=== PATIENT | female | born 1985 | race Caucasian/White ===

== ENCOUNTER 2024-07-25 17:38 | Emergency (ER) | payer BC, SELFPAY ==
[2024-07-25 17:41] VITALS: BP 141/72
--- NOTE | 2024-07-25 18:23 | ED.GENMED ---
History of Present Illness
<Tiffany Betancourt PA-C - Last Filed: 07/25/24 21:31>
General
Chief Complaint: Abdominal Pain
Source: patient
Exam Limitations: none
Time Seen by Provider: 07/25/24 17:50
Nursing documentation reviewed up to this point in time: agreed with
History of Present Illness
History of Present Illness:
The patient is a 38 at approx 26 weeks gestation presenting to the emergency department for evaluation of right upper quadrant abdominal pain. Patient states she has intermittently noticed the symptoms over the past 2 months which was
mentioned to her [facility]NAGER [facility]. It was thought that it might be acid reflux. Day or so pain has been much more severe and constant. Pain is located in the right upper quadrant with some radiation around to the right mid back is stabbing in quality. She
has had intermittent nausea and vomiting throughout . No known fever, chills, urinary symptoms, changes in bowel habits. No chest pain or shortness of breath.
Patient denies any lower abdominal discomfort. She has had no vaginal bleeding or loss of fluids.
has thus far been uncomplicated. She has no history of high blood pressure. She is seen by MANAGER [facility]ICOND[facility] at [facility] who she contacted today regarding symptoms was recommended that she come to the emergency.
Review of Systems
<Tiffany Betancourt PA-C - Last Filed: 07/25/24 21:31>
Review of Systems
Allergies reviewed?: Yes
All Other Systems: ROS reviewed and negative except as documented in HPI and ROS
Phy Exam
<Tiffany Betancourt PA-C - Last Filed: 07/25/24 21:31>
Physical Exam
Physical Exam:
Vitals: Patient's vital signs are stable. Afebrile
General: Patient is well appearing, no acute distress. Nontoxic appearing
Skin: Warm and dry, no rashes or lesions
Head: Normocephalic, atraumatic
Eyes: Sclera nonicteric. EOMs intact. No nystagmus.
Throat: Protecting airway
Neck: Normal ROM, no cervical spine tenderness, no meningismus
Cardiac: Regular rate and rhythm, no murmurs.
Pulm: Normal respiratory effort, no wheezes, rales, rhonchi heard on exam.
Abdomen: Gravid abdomen. Soft, moderately tender in right upper quadrant with voluntary guarding. Very mild epigastric tenderness. No rash or ecchymoses. No CVA tenderness
Extremities: No evidence of cyanosis or edema. Negative Homans' sign bilaterally. DP pulses palpable bilaterally
Neuro: AAOx3. Grossly intact.
Psychiatric: Normal affect.
Course
<Tiffany Betancourt PA-C - Last Filed: 07/25/24 21:31>
Orders/Labs/Results
Orders:
Orders
07/25/24 18:13
US Abdomen Complete/Upper Urgent
Comment:
Reason For Exam: RUQ abdominal pain, +nausea
07/25/24 18:15
Heart Tones ONCE
07/25/24 18:20
Complete Blood Count/With Diff Urgent
Comprehensive Metabolic Panel Urgent
Lipase Urgent
Urinalysis Reflex To Culture Urgent
Date Specimen was Collected: 07/25/24
Time Specimen was Collected: 18:15
07/25/24 21:18
Sucralfate [Carafate] 1 gram PO NOW STA
Abnormal Lab Results
07/25/24
18:20
WBC 11.6 H 10^3/uL
(4.8-10.8)
RBC 3.93 L 10^6/uL
(4.20-5.40)
Hgb 11.7 L g/dL
(12.0-16.0)
Hct 35.2 L %
(37.0-47.0)
Abs Immat Gran (auto) 0.1 H 10^3/uL
(0-0.05)
Absolute Neuts (auto) 7.7 H 10^3/uL
(1.4-6.5)
Absolute Monos (auto) 1.2 H 10^3/uL
(0.1-0.6)
Immature Gran % 0.8 H %
(0-0.5)
Lymphocytes % 19.9 L %
(20.5-51.1)
Monocytes % 10.5 H %
(1.7-9.3)
BUN 5 L mg/dl
(7-17)
Creatinine 0.5 L mg/dL
(0.6-1.0)
Total Protein 5.5 L g/dl
(6.3-8.2)
Albumin 3.0 L g/dl
(3.5-5.0)
07/25/24 18:20
07/25/24 18:20
Vital Signs
Initial and Last Documented VS:
Initial Vital Signs
Temp Pulse Resp BP Pulse Ox
98.7 F 81 18 141/72 99
07/25/24 17:41 07/25/24 17:41 07/25/24 17:41 07/25/24 17:41 07/25/24 17:41
Last Documented Vital Signs
Temp Pulse Resp BP Pulse Ox
98.7 F 81 18 128/70 100
07/25/24 17:41 07/25/24 17:41 07/25/24 17:41 07/25/24 19:00 07/25/24 19:15
<Nakul Bran, - Last Filed: 07/25/24 21:58>
Orders/Labs/Results
Orders:
Orders
07/25/24 18:13
US Abdomen Complete/Upper Urgent
Comment:
Reason For Exam: RUQ abdominal pain, +nausea
07/25/24 18:15
Heart Tones ONCE
07/25/24 18:20
Complete Blood Count/With Diff Urgent
Comprehensive Metabolic Panel Urgent
Lipase Urgent
Urinalysis Reflex To Culture Urgent
Date Specimen was Collected: 07/25/24
Time Specimen was Collected: 18:15
07/25/24 21:18
Sucralfate [Carafate] 1 gram PO NOW STA
Abnormal Lab Results
07/25/24
18:20
WBC 11.6 H 10^3/uL
(4.8-10.8)
RBC 3.93 L 10^6/uL
(4.20-5.40)
Hgb 11.7 L g/dL
(12.0-16.0)
Hct 35.2 L %
(37.0-47.0)
Abs Immat Gran (auto) 0.1 H 10^3/uL
(0-0.05)
Absolute Neuts (auto) 7.7 H 10^3/uL
(1.4-6.5)
Absolute Monos (auto) 1.2 H 10^3/uL
(0.1-0.6)
Immature Gran % 0.8 H %
(0-0.5)
Lymphocytes % 19.9 L %
(20.5-51.1)
Monocytes % 10.5 H %
(1.7-9.3)
BUN 5 L mg/dl
(7-17)
Creatinine 0.5 L mg/dL
(0.6-1.0)
Total Protein 5.5 L g/dl
(6.3-8.2)
Albumin 3.0 L g/dl
(3.5-5.0)
07/25/24 18:20
07/25/24 18:20
Vital Signs
Initial and Last Documented VS:
Initial Vital Signs
Temp Pulse Resp BP Pulse Ox
98.7 F 81 18 141/72 99
07/25/24 17:41 07/25/24 17:41 07/25/24 17:41 07/25/24 17:41 07/25/24 17:41
Last Documented Vital Signs
Temp Pulse Resp BP Pulse Ox
98.7 F 81 18 128/70 100
07/25/24 17:41 07/25/24 17:41 07/25/24 17:41 07/25/24 19:00 07/25/24 19:15
<Tiffany Betancourt PA-C - Last Filed: 07/25/24 21:31>
MDM/Problems Addressed
Differential Diagnosis Includes:
Not limited to: Biliary colic, cholecystitis, choledocholithiasis, cholangitis, pancreatitis, constipation HELLP syndrome, etc.
MDM/Problems Addressed:
38 year old at 37 weeks gestation presenting with right upper quadrant abdominal pain which has been somewhat intermittent over the past few months becoming more constant for the past few days. Mild associated nausea. No fever, chills,
vomiting. No vaginal bleeding or loss of fluids. has thus far been uncomplicated�following with [facility] MANAGER [facility]IC[facility]. Patient was initially mildly hypertensive in triage although normalized by my assessment. She is afebrile. On exam
patient is well-appearing, in no apparent distress. Cardio/pulmonary assessment unremarkable. Gravid abdomen with moderate tenderness in right upper quadrant. No lower abdominal tenderness. No evidence of DVT of lower extremities. Differential
broad although considerations include biliary colic, cholecystitis, constipation. Patient is not hypoxic with no pleuritic nature of pain and no evidence of DVT�do not suspect PE. heart tones were obtained by RN with strong and regular heart
rate approximately 150bpm. Will obtain lab work, check urine and abdominal ultrasound.
Chronic conditions affecting care:
N/A
Acute Exacerbation and/or Progression of Chronic Illness:
N/A
<Tiffany Betancourt PA-C - Last Filed: 07/25/24 21:31>
*Pulse Oximetry
Patient hypoxic: no
*EKG
Interpreted by ED Provider?: NA
*Critical Care Note
Total Time (30-74mins, 75-104mins- exclusive of procedures): Not Applicable
<Tiffany Betancourt PA-C - Last Filed: 07/25/24 21:31>
Update Note
Update Note:
Update: Labs reviewed mild leukocytosis of 11.6 which is actually slightly decreased from labs patient had drawn at [facility] yesterday with a white count of 12.4. Likely secondary to normal leukocytosis in . Chemistry without any
clinically significant abnormalities. There is no elevation in LFTs or bilirubin. Urine shows no signs of infection, no proteinuria. Abdominal ultrasound pending.
Update: Abdominal ultrasound report reviewed. No evidence of gallstones or acute cholecystitis. Given patient is afebrile with out significant leukocytosis�low suspicion for acute infectious process. It is possible the symptoms are secondary to
ongoing acid reflux during . Will prescribe Carafate and famotidine and have patient follow closely with MANAGER [facility]. Return precautions discussed at length including fever, chills, worsening pain, chest pain, shortness of breath, etc.
Patient comfortable with plan.
ED Attending Note
<Tiffany Betancourt PA-C - Last Filed: 07/25/24 21:31>
-
Portions of this chart may have been created with voice recognition software.� Occasional wrong word or��sound alike� substitutions may have occurred due to the inherent limitations of voice recognition software.
<Nakul Bran DO - Last Filed: 07/25/24 21:58>
ED Attending Note
Patient seen and examined by attending physician: Yes
I performed the substantive portion of visit, reviewed & personally made and approve the management plan that is documented in note by myself or AUTUMN.: Yes
ED Attending Note:
38-year-old female who is currently 6 weeks presents right quad abdominal pain that she admits is actually being ongoing since early and probably for about 3 to 4 months. She states it has been giving her some sharp pains at
times and seems a little worse recently. No vomiting. Pain is not worse necessarily with position or with eating. Nothing seems to bring it on necessarily. She does admit that she may be a little constipated. No fevers. No vomiting. No chest
pain. No shortness of breath. Exam: Mild right upper quadrant tenderness, mild epigastric tenderness, no distention, gravid uterus above the umbilicus. Respiratory rate normal. No respiratory distress. Assessment plan: Check labs and
ultrasound. Low suspicion for other infectious pathology given the fact that it has been going for some time and no fever. She has seen her doctor for it. In light of her I do not feel that CT imaging is warranted.
Discharge Plan
Departure
Patient Disposition: Home (Routine Discharge)
Date of Disposition: 07/25/24
Time of Disposition: 21:14
Patient with high blood pressure during this ER visit?: No
Covid-19: Not Applicable
Discharge Problem:
Abdominal pain during
Instructions: Acid Reflux and GERD in Adults (DC), Abdominal Pain
Prescriptions:
New
sucralfate [Carafate] 1 gram tablet
1 g PO TID 14 Days Qty: 42 0RF
famotidine [Zantac-360 (famotidine)] 20 mg tablet
20 mg PO DAILY Qty: 14 0RF
Referrals:
Reji Betancur DO [Family Provider] -
Activity Restrictions/Additional Instructions:
Return to the emergency department any fevers, chills, intractable nausea/vomiting, worsening abdominal pain, chest pain/shortness of breath, elevated blood pressure, worsening current symptoms, or any other concerns
-As discussed�your ultrasound showed no evidence of gallstones or an infection of your gallbladder.
-It is important that you follow closely with your MANAGER SEMICONDUCTOR for further evaluation/management of the symptoms. 2 prescriptions have been sent to your pharmacy to treat possible acid reflux component to symptoms.
-It is important stay well-hydrated. Avoid acidic foods.
-As discussed�follow-up with your MANAGER SEMICONDUCTOR in a few days for further evaluation/management
Monitor your symptoms closely return to the emergency department with any acute worsening/new symptoms or any other concerns
Interventions
Interventions:
*Risk Screen - Suicide Last Done: 07/25/24 17:41
*General Assessment Last Done: 07/25/24 17:41
*Neglect/Abuse Screening Last Done: 07/25/24 17:41
ED- Fall Risk Assessment Last Done: 07/25/24 21:40
*ED COVID-19 Vaccine History Last Done: 07/25/24 17:41
*Nursing Disposition Last Done: 07/25/24 21:40
QA-Lvvqlm-Rgqtlwwmcy Assessment Last Done: 07/25/24 18:38
Discharge Date and Time
Discharge Date/Time: 07/25/24 21:41
Print Language: SAMMARINESE
[2024-07-25 18:27] VITALS: BP 116/66
[2024-07-25 18:30] LABS: % Basophils 0.7 % (0-2); % Eosinophils 1.4 % (0-6); % Immature Granulocytes 0.8 % (0-0.5); % Lymphocytes 19.9 % (20.5-51.1); % Monocytes 10.5 % (1.7-9.3); % Neutrophils 66.7 % (42.2-75.2); Absolute Basophils 0.1 10^3/uL (0-0.2); Absolute Eosinophils 0.2 10^3/uL (0-0.7); Absolute Immature Granulocytes 0.1 10^3/uL (0-0.05); Absolute Lymphocytes 2.3 10^3/uL (1.2-3.4); Absolute Monocytes 1.2 10^3/uL (0.1-0.6); Absolute Neutrophils 7.7 10^3/uL (1.4-6.5); Hematocrit 35.2 % (37.0-47.0); Hemoglobin 11.7 g/dL (12.0-16.0); Mean Corp Hgb Conc. 33.2 g/dL (33.0-37.0); Mean Corpuscular Hgb 29.8 pg (27.0-31.0); Mean Corpuscular Volume 89.6 fL (81.0-99.0); Mean Platelet Volume 10.2 fL (7.4-10.4); Nucleated Red Blood Cells % 0 %; Platelet Count 203 10^3/uL (130-400); Red Blood Cell Count 3.93 10^6/uL (4.20-5.40); White Blood Cell Count 11.6 10^3/uL (4.8-10.8)
[2024-07-25 18:31] LABS: Urine Albumin Negative (Neg - Trace); Urine Bilirubin Negative (Negative); Urine Character Clear (Clear); Urine Color Straw; Urine Glucose Negative (Negative); Urine Ketone Negative (Negative); Urine Leukocyte Negative (Negative); Urine Nitrite Negative (Negative); Urine Occult Blood Negative (Negative); Urine Specific Gravity 1.005 (<1.030); Urine Urobilinogen Negative (Neg - 1+)
[2024-07-25 18:51] LABS: ALT (SGPT) 19 U/L (0-35); AST (SGOT) 21 U/L (14-36); Alkaline Phosphatase 77 U/L (38-126); Blood Urea Nitrogen 5 mg/dl (7-17); Calcium 8.5 mg/dl (8.4-10.2); Carbon Dioxide 23 mmol/L (22-30); Chloride 106 mmol/L (98-107); Glucose 99 mg/dl (70-99); Lipase 89 U/L (23-300); Potassium 4.1 mmol/L (3.5-5.1); Sodium 137 mmol/L (135-145); Total Bilirubin 0.3 mg/dl (0.2-1.3); Total Protein 5.5 g/dl (6.3-8.2); eGFR > 60.00
[2024-07-25 19:00] VITALS: BP 128/70
[2024-07-25] MEDS: CARAFATE 1 GRAM PO (21:22)
== END 2024-07-25 21:41 | disposition home or self-care (01) ==
LOC: EMR 17:38
PROVIDERS: Physician Assistant; EMERGENCY PHYSICIAN Emergency Medicine; FAMILY PHYSICIAN Family Medicine Adult Medicine
DX: O26.893 Other specified pregnancy related conditions, third trimester (principal); R10.11 Right upper quadrant pain; R11.2 Nausea with vomiting, unspecified; M54.6 Pain in thoracic spine; Z3A.27 27 weeks gestation of pregnancy; R10.816 Epigastric abdominal tenderness; Z88.1 Allergy status to other antibiotic agents; Z88.8 Allergy status to other drugs, medicaments and biological substances
CPT/HCPCS: 99284; 76700; 80053; 81003; 83690; 85025